=== PATIENT | male | born 1970 | race Caucasian/White ===

== ENCOUNTER → 2023-05-18 06:30 | Day surgery (SDC) | payer BC, SELFPAY ==
[2023-05-18 10:34] LABS: Glucose - Point of Care 117 mg/dl (70-99)
== END ==
LOC: GI 06:30
PROVIDERS: ATTENDING PHYSICIAN Surgery; FAMILY PHYSICIAN Family Medicine
DX: Z12.11 Encounter for screening for malignant neoplasm of colon (principal); D12.2 Benign neoplasm of ascending colon; K63.5 Polyp of colon; K56.2 Volvulus; K64.9 Unspecified hemorrhoids; Z80.0 Family history of malignant neoplasm of digestive organs
CPT/HCPCS: 45380; 88305; 82962